=== PATIENT | female | born 1965 | race Caucasian/White ===

== ENCOUNTER 2019-12-26 13:33 | Inpatient (IN) | payer SELFPAY ==
[~2019-12-26] VITALS: Ht 172.7 cm; Wt 82.6 kg
[2019-12-26 14:05] LABS: BASOPHILS # (AUTO) 0.1 /CMM (0.0-0.2); BASOPHILS % (AUTO) 0.6 % (0.0-2.0); EOSINOPHILS % (AUTO) 0.5 % (0.0-6.0); HEMATOCRIT 38 % (33-45); HEMOGLOBIN 12.4 g/dL (11.5-14.8); LYMPHOCYTES # (AUTO) 1.2 /CMM (0.8-4.8); LYMPHOCYTES % (AUTO) 9.4 % (20.0-44.0); MEAN CORPUSCULAR HGB CONC 33 g/dl (31.0-36.0); MEAN CORPUSCULAR VOLUME 89 fL (82-100); MONOCYTES # (AUTO) 0.8 /CMM (0.1-1.30); MONOCYTES % (AUTO) 5.8 % (2.0-12.0); NEUTROPHILS # (AUTO) 10.9 /CMM (1.8-8.9); NEUTROPHILS % (AUTO) 83.7 % (43.0-81.0); PLATELET COUNT (AUTO) 238 /CMM (150-450); RED BLOOD CELL COUNT(AUTO) 4.29 MIL/uL (4.0-5.2); WHITE BLOOD COUNT (AUTO) 13.1 K/uL (4.3-11.0)
--- NOTE | 2019-12-26 14:05 | NUR ---
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 RADIATED FROM RIGHT SHOULDER. AOX4, AMBULATORY, VSS, RR EVEN AND UNLABORED ON RA. NO ACUTE DISTRESS NOTED. FRIEND AT BEDSIDE. ON MONITOR AND READY FOR EVAL.
[2019-12-26 14:16] LABS: CALCIUM, SERUM 9.3 mg/dL (8.5-10.1); CARBON DIOXIDE 27 mmol/L (21-32); CHLORIDE 106 mmol/L (98-107); CREATININE 0.8 mg/dL (0.6-1.3); GLUCOSE 105 mg/dL (74-106); POTASSIUM 3.7 mmol/L (3.5-5.1); SODIUM SERUM 142 mmol/L (136-145); UREA NITROGEN, BLOOD 14 mg/dL (7-18)
[2019-12-26] MEDS ORDERED: KETOROLAC TROMETHAMINE INJ 30 MG/ML VIAL IV ONE ×2 (15:00→15:30)
[2019-12-26] MEDS ORDERED: KETOROLAC TROMETHAMINE 15 MG/ML VIAL ONE (15:04)
[2019-12-26] MEDS ORDERED: NITROGLYCERIN PACKET 1 GM PACKET ONE (15:22)
[2019-12-26] MEDS ORDERED: ASPIRIN 325 MG TABLET ONE (15:23)
[2019-12-26] MEDS ORDERED: ASPIRIN 325 MG TABLET PO ONE (15:30)
[2019-12-26] MEDS ORDERED: NITROGLYCERIN PACKET 1 GM PACKET TOP ONE (15:30)
--- NOTE | 2019-12-26 15:47 | NUR ---
[facility].
--- NOTE | 2019-12-26 15:48 | NUR ---
CALLED NURSING SUP FOR TELE BED.
--- NOTE | 2019-12-26 16:18 | NUR ---
NURSING SUP GAVE TELE BED [phone].
--- NOTE | 2019-12-26 17:22 | NUR ---
CALLED TO GIVE REPORT, WAS ASKED TO CALL BACK WHEN NURSE IS AVAILABLE.
[2019-12-26] MEDS ORDERED: MAG HYDROX/AL HYDROX/SIMETH 30 ML UDC PO PRN (17:30)
[2019-12-26] MEDS ORDERED: ACETAMINOPHEN 325 MG TABLET PO PRN (17:30)
[2019-12-26] MEDS ORDERED: MAGNESIUM HYDROXIDE 30 ML UDC PO PRN (17:30)
[2019-12-26] MEDS ORDERED: ONDANSETRON HCL/PF 4 MG/2 ML VIAL IVP PRN (17:30)
[2019-12-26] MEDS ORDERED: MORPHINE SULFATE INJ 2 MG/ML DISP.SYRIN IV PRN (17:30)
[2019-12-26] MEDS ORDERED: Z GUARD REMEDY 2 OZ OINT TP PRN (17:30)
[2019-12-26] MEDS ORDERED: HYDROCODONE/APAP 5/325MG 1 EACH TABLET PO PRN (17:30)
--- NOTE | 2019-12-26 17:31 | NUR ---
REPORT GIVEN TO CAROLINE SHEIKH FOR GEOVANNA
--- NOTE | 2019-12-26 17:45 | NUR ---
SYSTEM OPERATOR NOTES RECEIVED PATIENT FROM FROM ER PATIENT ALERT, ORIENTED X3 MAURITIAN SPEAKING. PATIENT COMPLAINTS OF CHEST PAIN WHICH HAS IMPROVED WITH MEDICATIONS. PATIENT REFUSED MORE MEDICATIONS. PATIENT STATES CHEST PAIN IS WITH MOVEMENT. PERIPHERAL IV INTACT PATENT. BED IN LOW LOCKED POSITION. CALL LIGHT WITHIN REACH. WILL CONTINUE TO MONITOR.
--- NOTE | 2019-12-26 17:46 | NUR ---
PT TRANSFERRED TO UNIT PER [facility]
[2019-12-26] MEDS: PANTOPRAZOLE 40 MG TABLET.DR PO SCH (18:16)
[2019-12-26] MEDS: ENOXAPARIN SODIUM 80 MG/0.8 ML DISP.SYRIN SQ SCH (18:22)
--- NOTE | 2019-12-26 19:01 | NUR ---
MARKET RISK SPECIALIST NOTES PATIENT IN BED RESTING NO SOB OR ACUTE distress noted. all due medications administered. all needs met. endorsed care to PM SHIFT.
[2019-12-26 20:00] VITALS: BP 160/98
--- NOTE | 2019-12-26 21:14 | NUR ---
MS/RN PATIENT'S FRIEND CAME PER PATIENT'S REQUEST AND DID A TRANSLATION FOR PLAN OF CARE. ALL QUESTIONS WERE ANSWERED TO THE BEST OF MY KNOWLEDGE.
--- NOTE | 2019-12-26 22:00 | NUR ---
MS/RN PATIENT IS SLEEPING AT THIS TIME, APPEAR COMFORTABLE, NO SIGNS OF DISTRESS NOTED, CALL LIGHT IN REACH. WILL CONTINUE TO MONITOR.
[2019-12-27 00:01] VITALS: BP 144/82
[2019-12-27 04:00] VITALS: BP 133/90
[2019-12-27 06:24] LABS: BASOPHILS % (AUTO) 0.2 % (0.0-2.0); EOSINOPHILS % (AUTO) 0.1 % (0.0-6.0); HEMATOCRIT 37 % (33-45); HEMOGLOBIN 12.2 g/dL (11.5-14.8); LYMPHOCYTES # (AUTO) 1.6 /CMM (0.8-4.8); LYMPHOCYTES % (AUTO) 17.9 % (20.0-44.0); MEAN CORPUSCULAR HGB CONC 33 g/dl (31.0-36.0); MEAN CORPUSCULAR VOLUME 87 fL (82-100); MONOCYTES % (AUTO) 11.3 % (2.0-12.0); NEUTROPHILS # (AUTO) 6.2 /CMM (1.8-8.9); NEUTROPHILS % (AUTO) 70.5 % (43.0-81.0); PLATELET COUNT (AUTO) 215 /CMM (150-450); RED BLOOD CELL COUNT(AUTO) 4.24 MIL/uL (4.0-5.2); WHITE BLOOD COUNT (AUTO) 8.8 K/uL (4.3-11.0)
--- NOTE | 2019-12-27 06:30 | NUR ---
MS/RN PATIENT STILL SLEEPING AT THIS TIME, APPEAR COMFORTABLE, NO SIGNS OF DISTRESS NOTED, CALL LIGHT IN REACH. ALL NEEDS ATTENDED AT THIS TIME, WILL CONTINUE TO MONITOR.
[2019-12-27 06:54] LABS: THYROID STIMULATING HORMONE 0.448 uIU/mL (0.358-3.74)
[2019-12-27 06:55] LABS: CALCIUM, SERUM 8.8 mg/dL (8.5-10.1); CREATININE 0.8 mg/dL (0.6-1.3); PHOSPHORUS 3.3 mg/dL (2.5-4.9); POTASSIUM 3.8 mmol/L (3.5-5.1)
--- NOTE | 2019-12-27 07:05 | NUR ---
COUNSELING PROGRAM LEADER OPENING NOTES RECEIVED PATIENT AWAKE IN BED IN NO ACUTE SIGNS OF DISTRESS. A/O X4. GUYANESE SPEAKING WITH C/O OF MILD DISCOMFORTS ON MID UPPER CHEST TO NECK AREA, OFFERED TO GIVE 02 VIA N/C BUT REFUSED. ON ROOM, RESPIRATIONS EVEN AND UNLABORED. TELE MONITOR SHOWS SR WITH HR ON THE 70'S AT THIS TIME. IV SL ON LAC #20 INTACT, PATENT AND FLUSHES WELL. BED IN LOW LOCKED POSITION. CALL LIGHT WITHIN REACH. WILL CONTINUE TO MONITOR. Addendum: 12/27/19 at 0750 by LAVONNE OLIVER RN ADDENDUM: PT SAME OFFERED PAIN MEDICATIONS BUT REFUSED. WILL CONTINUE TO MONITOR
[2019-12-27 08:00] VITALS: BP 146/93
[2019-12-27] MEDS: ENOXAPARIN SODIUM 80 MG/0.8 ML DISP.SYRIN SQ SCH (08:26)
[2019-12-27] MEDS: PANTOPRAZOLE 40 MG TABLET.DR PO SCH (09:32)
[2019-12-27] MEDS ORDERED: NITROGLYCERIN 0.4 MG/TAB BOTTLE ONE (11:31)
[2019-12-27] MEDS ORDERED: METOPROLOL TARTRATE INJ 5 MG/5 ML AMPUL ONE ×2 (11:31→11:47)
[2019-12-27] MEDS ORDERED: IOHEXOL-350 100 ML VIAL IV ONE (11:33)
[2019-12-27] MEDS ORDERED: IV NS 0.9% 250 ML IV ONE (11:33)
[2019-12-27] MEDS ORDERED: NITROGLYCERIN 0.4 MG/TAB BOTTLE SL ONE (11:42)
[2019-12-27] MEDS ORDERED: METOPROLOL TARTRATE INJ 5 MG/5 ML AMPUL IVP ONE (12:00)
[2019-12-27] MEDS ORDERED: IV NS 0.9% 500 ML IV ONE (12:00)
--- NOTE | 2019-12-27 12:02 | NUR ---
ct angio heart done...pt tolerated well..report to rn at bedside..
--- NOTE | 2019-12-27 12:14 | NUR ---
RN NOTES PT WAS TAKEN FOR COMPUTED TOMOGRAPHY ANGIO WITH THREE DIMENSIONAL PROCEDURE ON A WHEEL CHAIR AND RETURNED WITH A WHEEL CHAIR ACCOMPANIED BY TENNIS BALL COVERER HAND. WILL FOLLOW UP RESULTS
[2019-12-27] MEDS: METOPROLOL TARTRATE 50 MG TABLET PO SCH ×2 (12:20→17:08)
[2019-12-27 13:41] LABS: APPEARANCE,URINE SL CLOUDY (CLEAR); BILIRUBIN,URINE NEGATIVE (NEGATIVE); BLOOD, URINE SMALL Ery/uL (NEGATIVE); COLOR,URINE YELLOW (YELLOW); KETONES,URINE NEGATIVE (NEGATIVE); LEUKOCYTE ESTERASE ,URINE NEGATIVE (NEGATIVE); NITRITE, URINE NEGATIVE (NEGATIVE); PROTEIN,URINE NEGATIVE (NEGATIVE); UGLUCOSE NEGATIVE (NEGATIVE); UROBILINOGEN,URINE 0.2 EU/dL (0.2)
[2019-12-27 16:00] VITALS: BP 142/86
[2019-12-27 17:08] VITALS: BP 142/86
[2019-12-27] MEDS ORDERED: METO50TA16 PO (18:47)
--- NOTE | 2019-12-27 19:00 | NUR ---
RN DISCHARGED NOTES PT DISCHARGED HOME IN STABLE MEDICAL CONDITION. PT IS A/O X4. BAHAMIAN SPEAKING. AMBULATORY WITH STEADY GAIT. V/S TAKEN, STABLE AND RECORDED. SKIN IS INTACT AND WITHOUT SKIN ISSUES. ALL BELONGINGS, CHECKED, COUNTED AND SIGNED FORM. IV ACCESS ON LAC G#20 REMOVED WITH NO BLEEDING NOTED, DRY DRESSING APPLIED. SMOKING CESSATION EDUCATION, HEALTH TEACHINGS AND DISCHARGED INSTRUCTIONS GIVEN TO PT PER TRANSLATION FROM BAHAMIAN SPEAKING RESPIRATORY CARE PROGRAM DIRECTOR GEOVANNA. PT EXPLAINED TO F/U PRESCRIBED MEDICATIONS AT [facility], [address] [place] [id number], TEL # [phone] CANO WILL SEND ELECTRONICALLY. PT VERBALIZED UNDERSTANDING AND LEFT UNIT AMBULATORY @ [id number] ACCOMPANIED BY FRIEND OLGA. SANTANA AND CHARGE NURSE AWARE OF DISCHARGE.
== END 2019-12-27 19:00 | disposition home or self-care (01) | DRG 392 ==
LOC: ER 13:39 → TELE 16:24 → MED 12-27 11:10
PROVIDERS: ADMIT Nurse Practitioner Acute Care; ATTEND Student in an Organized Health Care Education/Training Program
DX: K21.9 Gastro-esophageal reflux disease without esophagitis (principal); J98.11 Atelectasis; Z72.0 Tobacco use; Z82.49 Family history of ischemic heart disease and other diseases of the circulatory system
CPT/HCPCS: 36415; 71045-TC; 75574; 80048-TC; 80061-TC; 81000-TC; 83735-TC; 84100-TC; 84443-TC; 84484-TC; 85025-TC; 85378-TC; 87081-TC; 87086-TC; 93307-TC; G0378; J1650; J1885; J3490; J7040; J7050; Q9967